=== PATIENT | male | born 1965 | race Caucasian/White ===

== ENCOUNTER 2017-04-18 21:15 | Emergency (ER) | payer OTHER ==
[~2017-04-18] VITALS: Ht 180.3 cm; Wt 135.3 kg
[2017-04-18 22:26] LABS: ADD MIUA? YES; BILIRUBIN NEGATIVE; BLOOD SMALL; COLOR YELLOW ((YELLOW)); GLUCOSE (STRIP) NEGATIVE; KETONES NEGATIVE; LEUKOCYTES NEGATIVE; NITRITE NEGATIVE; PROTEIN (STRIP) NEGATIVE; SPECIFIC GRAVITY 1.013 (1.000-1.030); UROBILINOGEN 0.2 MG/DL (0.2-1.0)
[2017-04-18 22:27] LABS: HEMATOCRIT 50.7 % (38.0-50.0); MCH 29.1 PG (29.0-34.0); MCHC 34.3 G/DL (30.0-36.0); MCV 84.8 FL (86-99); MEAN PLAT.VOLUME 10.3 uM^3 (9.0-12.4); PLATELET COUNT 264 K/uL (156-360); RBC DIS.WIDTH-CV 13.4 % (11.8-14.6); RBC DIS.WIDTH-SD 41.5 % (39-53); RED BLOOD COUNT 5.98 M/uL (4.00-5.50); WHITE BLOOD COUNT 20.5 K/uL (4.1-10.2)
[2017-04-18 22:29] LABS: BACTERIA NONE SEEN /HPF; EPITHELIAL CELLS NONE SEEN /HPF; MUCUS TRACE /LPF; RED BLOOD CELLS 0-5 /HPF (0-5); UCUL ADDED? NO; WHITE BLOOD CELLS 0-5 /HPF (0-5)
[2017-04-18 22:37] LABS: CHLORIDE 93 mEq/L (99-109); POTASSIUM 4.3 mEq/L (3.7-5.4); SODIUM 130 mEq/L (136-147)
[2017-04-18 22:39] LABS: GLUCOSE 140 mg/dL (70-99)
[2017-04-18 22:40] LABS: ANION GAP 10 MEQ/L (2-14)
[2017-04-18 22:41] LABS: TOTAL BILIRUBIN 0.6 mg/dL (0.0-1.0)
[2017-04-18 22:42] LABS: ALKALINE PHOSPHATASE 54 IU/L (3-129)
[2017-04-18 22:43] LABS: GFR ESTIMATE (CALCULATED) > 59 mL/min/
[2017-04-18 22:44] LABS: UREA NITROGEN (BUN) 13 mg/dL (9-23)
[2017-04-18 23:43] LABS: INTERNAL CONTROL VALID? YES
[2017-04-19 00:22] LABS: C DIFF TOXIN NEGATIVE (NEGATIVE)
[2017-04-19 00:23] LABS: PROBE CHECK PASS; SPECIMEN PROCESSING CONTROL PASS
[2017-04-19] MEDS ORDERED: FLAGYL500 MG PO (00:26)
[2017-04-19] MEDS ORDERED: CIPRO500 MG PO (00:26)
[2017-04-19] MEDS ORDERED: LIDOCAINE20 MG/1 M5 PO (00:26)
[2017-04-19 00:51] VITALS: BP 143/88
== END 2017-04-19 00:52 | disposition home or self-care (01) ==
LOC: EME 21:15
PROVIDERS: Emergency Medicine
DX: K57.32 Diverticulitis of large intestine without perforation or abscess without bleeding (principal)
CPT/HCPCS: 74176; 80053; 81003; 83630; 85027; 87493; 99281; 99284